=== PATIENT | male | born 1965 | race Two or more races ===

== ENCOUNTER 2021-12-05 20:02 | Emergency (ER) | payer SELFPAY ==
[~2021-12-05] VITALS: Ht 193 cm; Wt 99.8 kg
[2021-12-05 20:05] VITALS: BP 150/92
== END 2021-12-06 02:53 | disposition left against medical advice (07) ==
LOC: ER 20:02
DX: S41.112A Laceration without foreign body of left upper arm, initial encounter (principal); Z53.21 Procedure and treatment not carried out due to patient leaving prior to being seen by health care provider; W26.0XXA Contact with knife, initial encounter; Y93.89 Activity, other specified; Y92.9 Unspecified place or not applicable; Y99.8 Other external cause status